=== PATIENT | female | born 1940 | race Caucasian/White ===

== ENCOUNTER 2017-05-19 06:43 | Inpatient (IN) | payer MEDICARE, MEDICAID ==
[~2017-05-19] VITALS: Ht 165.1 cm; Wt 98.9 kg
[2017-05-19] MEDS ORDERED: SODIUM CHLORIDE 0.9% 1,000 ML IV ONE (07:19)
[2017-05-19] MEDS ORDERED: NITROGLYCERIN OINT 1GM/INCH UDPKT TD ONE (07:30)
[2017-05-19] MEDS ORDERED: ASPIRIN 81MG TABLET PO ONE (07:30)
[2017-05-19] MEDS ORDERED: LORAZEPAM 2MG/ML CPJ IV ONE (07:30)
[2017-05-19 07:51] LABS: BASOPHILS % 0.7 % (0.0-2.0); HEMATOCRIT. 35.1 % (36.0-48.0); HEMOGLOBIN. 12.1 g/dL (12.0-16.0); LYMPHOCYTES % 32.9 % (20.0-50.0); MEAN CORPUSCULAR HEMOGLOBIN 32.4 pg (28.0-32.0); MEAN CORPUSCULAR VOLUME 94.2 fL (81.0-99.0); MEAN PLATELET VOLUME 7.4 fl (7.4-10.4); MONOCYTES % 7.5 % (2.0-8.0); NEUTROPHILS % 51.9 % (40.0-76.0); PLATELET 178 x1000/uL (130-400); RED BLOOD CELL COUNT 3.73 mill/uL (4.2-5.4); RED CELL DISTRIBUTION WIDTH 14.5 % (11.6-14.6)
[2017-05-19 08:06] LABS: CARBON DIOXIDE 30 mEq/L (21-32); CHLORIDE 100 mEq/L (98-107); INR 1.1; PARTIAL THROMBOPLASTIN TIME 29.5 sec (23.4-31.0); PROTHROMBIN TIME 11.1 sec (9.4-11.6)
[2017-05-19 08:08] LABS: TROPONIN I < 0.02 ng/mL (0.00-0.04)
[2017-05-19] MEDS ORDERED: DOCUSATE SODIUM 100MG CAPSULE PO PRN (11:15)
[2017-05-19] MEDS ORDERED: IPRATROPIUM/ALBUTEROL 0.5-3(2.5)MG/3ML NEB INH PRN (11:15)
[2017-05-19] MEDS ORDERED: LORAZEPAM 2MG/ML CPJ IV PRN (11:15)
[2017-05-19] MEDS ORDERED: ONDANSETRON HCL 4MG/2ML VIAL IV PRN (11:15)
[2017-05-19] MEDS ORDERED: CLONIDINE 0.1MG TABLET PO PRN (11:15)
[2017-05-19] MEDS ORDERED: HALOPERIDOL LACTATE 5MG/ML VIAL IM PRN (11:15)
[2017-05-19] MEDS ORDERED: GUAIFENESIN 200MG/10ML SUGAR FREE UDC PO PRN (11:15)
[2017-05-19] MEDS ORDERED: NA PHOS,M-B/NA PHOS,DI-BA ENEMA 118ML PR PRN (11:15)
[2017-05-19] MEDS ORDERED: DIPHENHYDRAMINE 50MG/ML VIAL IV PRN (11:15)
[2017-05-19] MEDS ORDERED: MAGNESIUM/ALUMINUM HYDROXIDE/SIMETHICONE 30ML UDC PO PRN (11:15)
[2017-05-19] MEDS ORDERED: NITROGLYCERIN 0.4MG TABLET SL SL PRN (11:15)
[2017-05-19] MEDS ORDERED: ACETAMINOPHEN 325MG TABLET PO PRN (11:15)
[2017-05-19] MEDS ORDERED: TRAMADOL 50MG TABLET PO PRN (11:15)
[2017-05-19 11:30] VITALS: BP 124/51
[2017-05-19] MEDS ORDERED: MORPHINE SULFATE 4 MG/ML CPJ (NOT FOR IM USE) IV PRN (12:15)
[2017-05-19] MEDS: FAMOTIDINE 20MG/2ML VIAL IV SCH ×2 (12:40→15:21)
[2017-05-19] MEDS: ENOXAPARIN 40MG/0.4ML SYR SUBCUT SCH ×2 (12:40→15:22)
[2017-05-19] MEDS ORDERED: AMAN100T PO (14:07)
[2017-05-19] MEDS ORDERED: DIVAL250 PO (14:07)
[2017-05-19] MEDS ORDERED: OLAN10TA19 PO (14:07)
[2017-05-19] MEDS ORDERED: HALO100A IM (14:07)
[2017-05-19 15:32] LABS: CREATINE KINASE 274 IU/L (26-192); CREATINE KINASE MB FRACTION 3.7 ng/mL (0.5-3.6); TROPONIN I < 0.02 ng/mL (0.00-0.04)
[2017-05-19 15:52] VITALS: BP 108/52
[2017-05-19] MEDS: DIVALPROEX SODIUM 250MG DR TABLET PO SCH (19:07)
[2017-05-19] MEDS: OLANZAPINE 10MG TABLET PO SCH (19:07)
[2017-05-19 20:00] VITALS: BP 119/51
[2017-05-19 20:05] LABS: CLARITY URINE CLEAR (CLEAR); COLOR URINE YELLOW (YELLOW); GLUCOSE URINE NEGATIVE (NEGATIVE); KETONES URINE NEGATIVE (NEGATIVE); LEUKOCYTE ESTERASE URINE 1+ (NEGATIVE); NITRITE URINE NEGATIVE (NEGATIVE); OCCULT BLOOD URINE NEGATIVE (NEGATIVE); PROTEIN URINE NEGATIVE (NEGATIVE); SPECIFIC GRAVITY URINE 1.008 (1.005-1.030); UROBILINOGEN URINE 0.2 E.U./dL (0.2-1.0)
[2017-05-19 20:15] LABS: *AMPHETAMINES SCREEN URINE NEGATIVE (NEGATIVE); *BARBITURATES SCREEN URINE NEGATIVE (NEGATIVE); *BENZODIAZEPINES SCREEN URINE NEGATIVE (NEGATIVE); *COCAINE SCREEN URINE NEGATIVE (NEGATIVE); CANNABINOID URINE SCREEN NEGATIVE (NEGATIVE); METHADONE URINE SCREEN NEGATIVE (NEGATIVE); OPIATES URINE SCREEN NEGATIVE (NEGATIVE); PHENCYCLIDINE URINE SCREEN NEGATIVE (NEGATIVE)
[2017-05-19] MEDS ORDERED: ZOLPIDEM TARTRATE 5MG TABLET PO PRN (21:00)
[2017-05-20] VITALS: BP 122/80
[2017-05-20 00:25] LABS: CREATINE KINASE 217 IU/L (26-192)
[2017-05-20 04:00] VITALS: BP 151/45
[2017-05-20 08:00] VITALS: BP 145/53
[2017-05-20] MEDS: ASPIRIN 325MG EC TABLET PO SCH (09:00)
[2017-05-20] MEDS: FAMOTIDINE 20MG/2ML VIAL IV SCH (09:00)
[2017-05-20] MEDS: DIVALPROEX SODIUM 250MG DR TABLET PO SCH ×4 (09:18→17:01)
[2017-05-20] MEDS: OLANZAPINE 10MG TABLET PO SCH ×2 (09:18→17:01)
[2017-05-20 12:00] VITALS: BP 112/52
[2017-05-20] MEDS: ENOXAPARIN 40MG/0.4ML SYR SUBCUT SCH ×2 (12:00→21:00)
[2017-05-20] MEDS ORDERED: POTASSIUM CHLORIDE 20MEQ TABLET SR PO SCH (13:30)
[2017-05-20 14:30] LABS: T4 FREE 0.13 ng/dL (0.76-1.46)
[2017-05-20 16:00] VITALS: BP 134/57
[2017-05-20 20:00] VITALS: BP 136/66
[2017-05-21 00:31] VITALS: BP 92/50
[2017-05-21 04:00] VITALS: BP 99/57
[2017-05-21 05:46] LABS: BASOPHILS % 0.6 % (0.0-2.0); EOSINOPHILS % 5.9 % (0.0-5.0); HEMATOCRIT. 37.5 % (36.0-48.0); HEMOGLOBIN. 12.7 g/dL (12.0-16.0); LYMPHOCYTES % 35.5 % (20.0-50.0); MEAN CORPUSCULAR HEMOGLOBIN 32.2 pg (28.0-32.0); MEAN CORPUSCULAR VOLUME 94.8 fL (81.0-99.0); MEAN PLATELET VOLUME 8.1 fl (7.4-10.4); MONOCYTES % 9.2 % (2.0-8.0); NEUTROPHILS % 48.8 % (40.0-76.0); PLATELET 207 x1000/uL (130-400); RED BLOOD CELL COUNT 3.95 mill/uL (4.2-5.4); RED CELL DISTRIBUTION WIDTH 14.8 % (11.6-14.6)
[2017-05-21 06:41] LABS: CARBON DIOXIDE 29 mEq/L (21-32); CHLORIDE 103 mEq/L (98-107)
[2017-05-21 06:51] LABS: TROPONIN I < 0.02 ng/mL (0.00-0.04)
[2017-05-21 08:00] VITALS: BP 141/53
[2017-05-21] MEDS: ASPIRIN 325MG EC TABLET PO SCH (08:30)
[2017-05-21] MEDS: FAMOTIDINE 20MG/2ML VIAL IV SCH (08:30)
[2017-05-21] MEDS: DIVALPROEX SODIUM 250MG DR TABLET PO SCH ×3 (08:30→17:46)
[2017-05-21] MEDS: ENOXAPARIN 40MG/0.4ML SYR SUBCUT SCH (08:34)
[2017-05-21] MEDS: OLANZAPINE 10MG TABLET PO SCH ×2 (08:39→17:46)
[2017-05-21 12:00] VITALS: BP 120/49
[2017-05-21] MEDS: LEVOTHYROXINE SODIUM 50MCG TABLET PO SCH (14:07)
[2017-05-21 16:00] VITALS: BP 132/54
[2017-05-21 20:00] VITALS: BP 109/51
[2017-05-21] MEDS: ENOXAPARIN 30MG/0.3ML SYR SUBCUT SCH (20:57)
[2017-05-22] VITALS: BP 99/45
[2017-05-22 04:00] VITALS: BP 95/46
[2017-05-22] MEDS: LEVOTHYROXINE SODIUM 50MCG TABLET PO SCH (06:13)
[2017-05-22 08:00] VITALS: BP 108/56
[2017-05-22] MEDS: DIVALPROEX SODIUM 250MG DR TABLET PO SCH ×3 (08:29→16:14)
[2017-05-22] MEDS: OLANZAPINE 10MG TABLET PO SCH ×2 (08:29→16:14)
[2017-05-22] MEDS: ASPIRIN 325MG EC TABLET PO SCH (08:29)
[2017-05-22] MEDS: ENOXAPARIN 30MG/0.3ML SYR SUBCUT SCH ×2 (08:33→20:45)
[2017-05-22] MEDS: FAMOTIDINE 20MG/2ML VIAL IV SCH (08:34)
[2017-05-22 12:00] VITALS: BP 109/47
[2017-05-22 15:44] VITALS: BP 114/56
[2017-05-22 20:00] VITALS: BP 109/60
[2017-05-23] VITALS: BP 108/50
[2017-05-23 04:00] VITALS: BP 114/50
[2017-05-23] MEDS: LEVOTHYROXINE SODIUM 50MCG TABLET PO SCH (07:27)
[2017-05-23] MEDS: DIVALPROEX SODIUM 250MG DR TABLET PO SCH ×4 (09:00→17:00)
[2017-05-23] MEDS: OLANZAPINE 10MG TABLET PO SCH ×3 (09:00→17:00)
[2017-05-23] MEDS: ENOXAPARIN 30MG/0.3ML SYR SUBCUT SCH ×2 (09:00→21:00)
[2017-05-23] MEDS: ASPIRIN 325MG EC TABLET PO SCH ×2 (09:00→09:02)
[2017-05-23] MEDS: FAMOTIDINE 20MG/2ML VIAL IV SCH (09:00)
[2017-05-23 12:00] VITALS: BP 116/41
[2017-05-23 15:08] VITALS: BP 116/41
[2017-05-23 20:00] VITALS: BP 122/51
[2017-05-24] VITALS: BP 133/56
[2017-05-24 04:00] VITALS: BP 128/50
[2017-05-24] MEDS: LEVOTHYROXINE SODIUM 50MCG TABLET PO SCH (06:37)
[2017-05-24 08:00] VITALS: BP 105/48
[2017-05-24] MEDS: ASPIRIN 325MG EC TABLET PO SCH (08:21)
[2017-05-24] MEDS: FAMOTIDINE 20MG/2ML VIAL IV SCH (08:21)
[2017-05-24] MEDS: OLANZAPINE 10MG TABLET PO SCH (08:21)
[2017-05-24] MEDS: DIVALPROEX SODIUM 250MG DR TABLET PO SCH ×2 (08:21→12:21)
[2017-05-24] MEDS: ENOXAPARIN 30MG/0.3ML SYR SUBCUT SCH (08:22)
[2017-05-24 12:00] VITALS: BP 126/96
[2017-05-24 13:36] VITALS: BP 126/96
== END 2017-05-24 15:15 | DRG 313 ==
LOC: ER 06:43 → ENRESERV 09:49 → 6WST 10:32 → EDBEDREQ 10:35 → SUPCPDRO 11:01 → 6WST 13:25
PROVIDERS: ADMIT Internal Medicine; ATTEND Internal Medicine
DX: R07.89 Other chest pain (principal); J44.9 Chronic obstructive pulmonary disease, unspecified; F20.9 Schizophrenia, unspecified; I44.1 Atrioventricular block, second degree; E03.9 Hypothyroidism, unspecified; E78.00 Pure hypercholesterolemia, unspecified; F17.210 Nicotine dependence, cigarettes, uncomplicated; F31.9 Bipolar disorder, unspecified; Z79.82 Long term (current) use of aspirin; Z91.19 Patient's noncompliance with other medical treatment and regimen; Z88.8 Allergy status to other drugs, medicaments and biological substances
CPT/HCPCS: 36415; 71010; 80053; 80061; 80305; 81001; 82550; 82553; 83036; 83735; 83880; 84439; 84443; 84481; 84484; 85025; 85379; 85610; 85730; 93005; 93306; 93970; 96361; 96374; 97162; 99285; J1200; J1630; J1650; J2060; J3490; J7030

== ENCOUNTER 2018-10-12 18:45 | Inpatient (IN) | payer MEDICARE, MEDICAID ==
[~2018-10-12] VITALS: Ht 167.6 cm; Wt 109.8 kg
[~2018-10-12 18:45] MED LIST: AMAN100T PO; DIVAL250 PO; HALO100A IM; OLAN10TA19 PO
[2018-10-12] MEDS ORDERED: METHYLPREDNISOLONE SOD SUCC 125 MG/2 ML VIAL IV STA (19:14)
[2018-10-12] MEDS ORDERED: LEVOFLOXACIN 750MG PREMIX 150 ML IV ONE (19:15)
[2018-10-12] MEDS ORDERED: IPRATROPIUM/ALBUTEROL 0.5-3(2.5)MG/3ML NEB HHN ONE (19:15)
[2018-10-12 19:48] LABS: BG BASE EXCESS -0.8 mmol/L (-2.0-2.0); BG CARBOXYHEMOGLOBIN 0.5 % (0.5-1.5); BG DEOXYHEMOGLOBIN 0.9 % (0.0-5.0); BG FRACTION INSPIRED OXYGEN 100; BG HCO3 ACT 25.3 mmol/L (22.0-26.0); BG METHEMOGLOBIN 0.2 % (0.0-1.5); BG OXYGEN SATURATION 99.1 % (92.0-98.5); BG OXYHEMOGLOBIN 98.4 % (94.0-97.0); BG PCO2 47.9 mmHg (35.0-45.0); BG PH 7.341 (7.350-7.450); BG PO2 223.6 mmHg (75.0-100.0); BG SAMPLE SITE RIGHT RADIAL; BG TOTAL HEMOGLOBIN 11.9 g/dL (12.0-18.0); BG VENT MODE MASK - NRB
[2018-10-12 20:30] LABS: BASOPHILS % 0.3 % (0.0-2.0); EOSINOPHILS % 0.3 % (0.0-5.0); HEMATOCRIT. 32.3 % (36.0-48.0); HEMOGLOBIN. 11.2 g/dL (12.0-16.0); LYMPHOCYTES % 19.8 % (20.0-50.0); MEAN PLATELET VOLUME 8.3 fl (7.4-10.4); MONOCYTES % 5.3 % (2.0-8.0); NEUTROPHILS % 74.3 % (40.0-76.0); PLATELET 221 x1000/uL (130-400); RED CELL DISTRIBUTION WIDTH 13.3 % (11.6-14.6)
[2018-10-12 20:32] LABS: CHLORIDE 81 mEq/L (98-107)
[2018-10-12 20:36] LABS: INR 1.1; PARTIAL THROMBOPLASTIN TIME 29.3 sec (23.4-31.0); PROTHROMBIN TIME 11.1 sec (9.1-11.1)
[2018-10-12] MEDS ORDERED: ASPIRIN 81MG TABLET PO ONE (21:30)
[2018-10-12] MEDS ORDERED: FUROSEMIDE 40MG/4ML VIAL IVP ONE (21:30)
[2018-10-12] MEDS ORDERED: HYDROCODONE/ACETAMINOPHEN 10/325MG TABLET PO PRN (22:30)
[2018-10-12] MEDS ORDERED: LORAZEPAM 2MG/ML CPJ IV ONE (22:30)
[2018-10-12] MEDS ORDERED: GUAIFENESIN 200MG/10ML SUGAR FREE UDC PO PRN (22:30)
[2018-10-12] MEDS ORDERED: LORAZEPAM 2MG/ML CPJ IV PRN (22:30)
[2018-10-12] MEDS ORDERED: DOCUSATE SODIUM 100MG CAPSULE PO PRN (22:30)
[2018-10-12] MEDS ORDERED: HYDRALAZINE 20MG/ML VIAL IV PRN (22:30)
[2018-10-12] MEDS ORDERED: MAGNESIUM/ALUMINUM HYDROXIDE/SIMETHICONE 30ML UDC PO PRN (22:30)
[2018-10-12] MEDS ORDERED: ACETAMINOPHEN 325MG TABLET PO PRN (22:30)
[2018-10-12] MEDS ORDERED: DIPHENHYDRAMINE 50MG/ML VIAL IV PRN (22:30)
[2018-10-12] MEDS ORDERED: ONDANSETRON HCL 4MG/2ML INJ IV PRN (22:30)
[2018-10-12] MEDS ORDERED: CLONIDINE 0.1MG TABLET PO PRN (22:30)
[2018-10-13 01:10] VITALS: BP 163/84
[2018-10-13 01:43] VITALS: BP 163/84
[2018-10-13] MEDS ORDERED: LEVO150T8 PO (02:26)
[2018-10-13] MEDS ORDERED: ASPI-1158 PO (02:26)
[2018-10-13] MEDS ORDERED: ATOR10TA69 PO (02:26)
[2018-10-13] MEDS ORDERED: ACET-2178 PO ×2 (02:26)
[2018-10-13] MEDS ORDERED: IPRA3AMP9 HHN (02:26)
[2018-10-13] MEDS ORDERED: HYDROMORPHONE HCL/PF 2MG/ML CPJ IV PRN (02:43)
[2018-10-13 04:00] VITALS: BP 144/62
[2018-10-13] MEDS: IPRATROPIUM/ALBUTEROL 0.5-3(2.5)MG/3ML NEB INH PRN ×2 (04:09→08:48)
[2018-10-13] MEDS: SODIUM CHLORIDE 0.9% INJ 3ML FLUSH IVF SCH ×3 (05:26→21:20)
[2018-10-13] MEDS: METHYLPREDNISOLONE SOD SUCC 125 MG/2 ML VIAL IV SCH ×2 (06:28→12:25)
[2018-10-13 07:37] LABS: CLARITY URINE CLEAR (CLEAR); COLOR URINE YELLOW (YELLOW); KETONES URINE NEGATIVE (NEGATIVE); LEUKOCYTE ESTERASE URINE NEGATIVE (NEGATIVE); NITRITE URINE NEGATIVE (NEGATIVE); OCCULT BLOOD URINE 1+ (NEGATIVE); PROTEIN URINE NEGATIVE (NEGATIVE); SPECIFIC GRAVITY URINE 1.006 (1.005-1.030); UROBILINOGEN URINE 0.2 E.U./dL (0.2-1.0)
[2018-10-13] MEDS ORDERED: ENOXAPARIN 30MG/0.3ML SYR SUBCUT SCH (09:00)
[2018-10-13] MEDS: ASPIRIN 81MG EC TABLET PO SCH ×2 (09:00→10:00)
[2018-10-13] MEDS ORDERED: ENOXAPARIN 40MG/0.4ML SYR SUBCUT SCH (09:00)
[2018-10-13] MEDS: ASPIRIN 81MG TABLET PO SCH (09:00)
[2018-10-13] MEDS: FUROSEMIDE 40MG/4ML VIAL IV SCH (10:01)
[2018-10-13] MEDS: ENOXAPARIN 100MG/ML SYR SUBCUT SCH ×2 (10:11→21:19)
[2018-10-13] MEDS: IPRATROPIUM/ALBUTEROL 0.5-3(2.5)MG/3ML NEB HHN SCH ×2 (11:43→17:03)
[2018-10-13 12:25] VITALS: BP 115/61
[2018-10-13 12:52] LABS: BASOPHILS % 0.1 % (0.0-2.0); HEMATOCRIT. 33.6 % (36.0-48.0); HEMOGLOBIN. 11.9 g/dL (12.0-16.0); LYMPHOCYTES % 10.4 % (20.0-50.0); MEAN CORPUSCULAR HEMOGLOBIN 33.1 pg (28.0-32.0); MEAN CORPUSCULAR VOLUME 93.8 fL (81.0-99.0); MEAN PLATELET VOLUME 8.3 fl (7.4-10.4); MONOCYTES % 2.4 % (2.0-8.0); NEUTROPHILS % 87.1 % (40.0-76.0); PLATELET 205 x1000/uL (130-400); RED BLOOD CELL COUNT 3.58 mill/uL (4.2-5.4); RED CELL DISTRIBUTION WIDTH 13.5 % (11.6-14.6)
[2018-10-13 13:08] LABS: CHLORIDE 78 mEq/L (98-107)
[2018-10-13 13:15] LABS: HDL CHOLESTEROL 82 mg/dL (40-59)
[2018-10-13 13:17] LABS: CREATINE KINASE MB FRACTION 38.4 ng/mL (0.5-3.6); LDL CHOLESTEROL 168 mg/dL (5-100)
[2018-10-13 13:29] LABS: CREATINE KINASE 2961 IU/L (26-192)
[2018-10-13 13:45] LABS: T4 FREE 0.14 ng/dL (0.76-1.46)
[2018-10-13 16:11] VITALS: BP_SYST 123; BP_SYST 128; BP_DIAS 33; BP_DIAS 50
[2018-10-13] MEDS: POTASSIUM CHLORIDE 20MEQ TABLET SR PO NR ×2 (16:44→17:00)
[2018-10-13] MEDS: BUDESONIDE 0.5MG/2ML NEB HHN SCH (17:02)
[2018-10-13 20:00] VITALS: BP 143/51
[2018-10-13] MEDS: GUAIFENESIN 600MG ER TABLET PO SCH (21:00)
[2018-10-13 22:19] LABS: CREATINE KINASE MB FRACTION 42.5 ng/mL (0.5-3.6)
[2018-10-14] VITALS: BP 120/66
[2018-10-14] MEDS: IPRATROPIUM/ALBUTEROL 0.5-3(2.5)MG/3ML NEB HHN SCH ×7 (00:08→21:09)
[2018-10-14] MEDS: BUDESONIDE 0.5MG/2ML NEB HHN SCH ×4 (03:48→21:09)
[2018-10-14 04:00] VITALS: BP 134/54
[2018-10-14 06:19] LABS: EOSINOPHILS % 0.1 % (0.0-5.0); HEMATOCRIT. 32.5 % (36.0-48.0); HEMOGLOBIN. 11.5 g/dL (12.0-16.0); LYMPHOCYTES % 15.2 % (20.0-50.0); MEAN CORPUSCULAR HEMOGLOBIN 33.7 pg (28.0-32.0); MEAN CORPUSCULAR VOLUME 95.1 fL (81.0-99.0); MEAN PLATELET VOLUME 8.3 fl (7.4-10.4); MONOCYTES % 6.4 % (2.0-8.0); NEUTROPHILS % 78.3 % (40.0-76.0); PLATELET 201 x1000/uL (130-400); RED BLOOD CELL COUNT 3.42 mill/uL (4.2-5.4); RED CELL DISTRIBUTION WIDTH 13.2 % (11.6-14.6)
[2018-10-14] MEDS: SODIUM CHLORIDE 0.9% INJ 3ML FLUSH IVF SCH ×3 (06:28→20:38)
[2018-10-14] MEDS: FUROSEMIDE 40MG/4ML VIAL IV SCH (08:25)
[2018-10-14] MEDS: ENOXAPARIN 100MG/ML SYR SUBCUT SCH ×3 (08:26→20:44)
[2018-10-14] MEDS: GUAIFENESIN 600MG ER TABLET PO SCH ×2 (08:26→20:39)
[2018-10-14] MEDS: ASPIRIN 81MG TABLET PO SCH (08:26)
[2018-10-14 12:06] VITALS: BP 123/51
[2018-10-14] MEDS: OSELTAMIVIR 75MG CAPSULE PO SCH ×2 (13:45→20:39)
[2018-10-14] MEDS: AZITHROMYCIN 500 MG TABLET PO SCH (16:12)
[2018-10-14] MEDS: CEFTRIAXONE 1 G PREMIX 50 ML IV SCH (16:12)
[2018-10-14 16:16] VITALS: BP 134/42
[2018-10-14 18:05] LABS: *AMPHETAMINES SCREEN URINE NEGATIVE (NEGATIVE)
[2018-10-14 18:06] LABS: *BARBITURATES SCREEN URINE NEGATIVE (NEGATIVE); *BENZODIAZEPINES SCREEN URINE NEGATIVE (NEGATIVE); *COCAINE SCREEN URINE NEGATIVE (NEGATIVE); CANNABINOID URINE SCREEN NEGATIVE (NEGATIVE); METHADONE URINE SCREEN NEGATIVE (NEGATIVE); OPIATES URINE SCREEN NEGATIVE (NEGATIVE); PHENCYCLIDINE URINE SCREEN NEGATIVE (NEGATIVE)
[2018-10-14 20:00] VITALS: BP 120/70
[2018-10-15] VITALS: BP 139/54
[2018-10-15] MEDS: IPRATROPIUM/ALBUTEROL 0.5-3(2.5)MG/3ML NEB HHN SCH ×4 (00:39→12:51)
[2018-10-15 04:00] VITALS: BP 136/58
[2018-10-15] MEDS: SODIUM CHLORIDE 0.9% INJ 3ML FLUSH IVF SCH (07:00)
[2018-10-15 08:00] VITALS: BP 140/60
[2018-10-15] MEDS: BUDESONIDE 0.5MG/2ML NEB HHN SCH (08:01)
[2018-10-15] MEDS: ASPIRIN 81MG TABLET PO SCH (09:00)
[2018-10-15] MEDS: OSELTAMIVIR 75MG CAPSULE PO SCH (09:00)
[2018-10-15] MEDS: ENOXAPARIN 100MG/ML SYR SUBCUT SCH (09:00)
[2018-10-15] MEDS: AZITHROMYCIN 500 MG TABLET PO SCH ×2 (09:36→09:42)
[2018-10-15] MEDS: FUROSEMIDE 40MG/4ML VIAL IV SCH (09:36)
[2018-10-15] MEDS: GUAIFENESIN 600MG ER TABLET PO SCH ×2 (09:36→09:42)
[2018-10-15 12:00] VITALS: BP 113/65
[2018-10-15] MEDS: CEFTRIAXONE 1 G PREMIX 50 ML IV SCH (13:14)
[2018-10-15 13:47] VITALS: BP 113/65
[2018-10-15] MEDS ORDERED: POTASSIUM CHLORIDE 20MEQ TABLET SR PO NR (15:15)
[2018-10-15] MEDS ORDERED: ATORVASTATIN CALCIUM 20MG TABLET PO SCH (21:00)
== END 2018-10-15 15:05 | disposition home or self-care (01) | DRG 291 ==
LOC: ER 18:45 → 5WST 21:41 → EDBEDREQTM 21:45 → EDBEDREQ 21:45 → ENRESERV 10-13 00:19
PROVIDERS: ADMIT Internal Medicine; ATTEND Internal Medicine
DX: I50.33 Acute on chronic diastolic (congestive) heart failure (principal); J96.00 Acute respiratory failure, unspecified whether with hypoxia or hypercapnia; E87.1 Hypo-osmolality and hyponatremia; J44.1 Chronic obstructive pulmonary disease with (acute) exacerbation; M62.82 Rhabdomyolysis; F03.90 Unspecified dementia, unspecified severity, without behavioral disturbance, psychotic disturbance, mood disturbance, and anxiety; G20 Parkinson's disease; R74.0 Nonspecific elevation of levels of transaminase and lactic acid dehydrogenase [LDH]; E03.9 Hypothyroidism, unspecified; E78.5 Hyperlipidemia, unspecified; E87.6 Hypokalemia; Z79.82 Long term (current) use of aspirin; Z79.890 Hormone replacement therapy; Z88.8 Allergy status to other drugs, medicaments and biological substances; Z79.899 Other long term (current) drug therapy
CPT/HCPCS: 36415; 36600; 71045; 80048; 80061; 80165; 80305; 82375; 82550; 82553; 82805; 82962; 83036; 83605; 83735; 83880; 84439; 84443; 84484; 85379; 87804; 93005; 93306; 93970; 96374; 99291; J0696; J1650; J1940; J1956; J2060; J2930; J7050; J7620; J7626

== ENCOUNTER 2018-10-27 16:09 | Inpatient (IN) | payer MEDICARE, MEDICAID ==
[~2018-10-27] VITALS: Ht 152.4 cm; Wt 108.9 kg
[~2018-10-27 16:09] MED LIST changes: +ACET-2178 PO; +ASPI-1158 PO; +ATOR10TA69 PO; -HALO100A IM; +IPRA3AMP9 HHN; +LEVO150T8 PO
[2018-10-27] MEDS ORDERED: METHYLPREDNISOLONE SOD SUCC 125 MG/2 ML VIAL IV STA (17:44)
[2018-10-27] MEDS ORDERED: IPRATROPIUM/ALBUTEROL 0.5-3(2.5)MG/3ML NEB HHN ONE (17:45)
[2018-10-27 18:58] LABS: BASOPHILS % 0.1 % (0.0-2.0); EOSINOPHILS % 0.1 % (0.0-5.0); HEMATOCRIT. 30.5 % (36.0-48.0); HEMOGLOBIN. 10.8 g/dL (12.0-16.0); LYMPHOCYTES % 17.8 % (20.0-50.0); MEAN CORPUSCULAR HEMOGLOBIN 33.2 pg (28.0-32.0); MEAN CORPUSCULAR VOLUME 94.1 fL (81.0-99.0); MEAN PLATELET VOLUME 7.8 fl (7.4-10.4); MONOCYTES % 4.4 % (2.0-8.0); NEUTROPHILS % 77.6 % (40.0-76.0); PLATELET 227 x1000/uL (130-400); RED BLOOD CELL COUNT 3.24 mill/uL (4.2-5.4); RED CELL DISTRIBUTION WIDTH 13.5 % (11.6-14.6)
[2018-10-27 19:01] LABS: CHLORIDE 83 mEq/L (98-107)
[2018-10-27 19:07] LABS: D-DIMER 0.36 mg/L FEU (<0.50); INR 1.1; PARTIAL THROMBOPLASTIN TIME 31.7 sec (23.4-31.0); PROTHROMBIN TIME 11.1 sec (9.1-11.1)
[2018-10-27] MEDS ORDERED: NITROGLYCERIN OINT 1GM/INCH UDPKT TD ONE (19:30)
[2018-10-27] MEDS ORDERED: FUROSEMIDE 40MG/4ML VIAL IV ONE (19:30)
[2018-10-27] MEDS ORDERED: ASPIRIN 81MG TABLET PO ONE (19:30)
[2018-10-27] MEDS ORDERED: ONDANSETRON HCL 4MG/2ML INJ IV PRN (19:45)
[2018-10-27] MEDS ORDERED: MAGNESIUM/ALUMINUM HYDROXIDE/SIMETHICONE 30ML UDC PO PRN (19:45)
[2018-10-27] MEDS ORDERED: CLONIDINE 0.1MG TABLET PO PRN (19:45)
[2018-10-27] MEDS ORDERED: LORAZEPAM 0.5MG TABLET PO PRN (19:45)
[2018-10-27] MEDS ORDERED: ACETAMINOPHEN 325MG TABLET PO PRN (19:45)
[2018-10-27] MEDS ORDERED: GUAIFENESIN 200MG/10ML SUGAR FREE UDC PO PRN (19:45)
[2018-10-27] MEDS ORDERED: ZOLPIDEM TARTRATE 5MG TABLET PO PRN (19:45)
[2018-10-27] MEDS ORDERED: TRAMADOL 50MG TABLET PO PRN (19:45)
[2018-10-27] MEDS ORDERED: DOCUSATE SODIUM 100MG CAPSULE PO PRN (19:45)
[2018-10-27] MEDS ORDERED: IPRATROPIUM/ALBUTEROL 0.5-3(2.5)MG/3ML NEB INH PRN (19:45)
[2018-10-27] MEDS ORDERED: NITROGLYCERIN 0.4MG TABLET SL SL PRN (19:45)
[2018-10-27 20:17] LABS: T4 FREE 0.12 ng/dL (0.76-1.46)
[2018-10-27 20:26] LABS: *AMPHETAMINES SCREEN URINE NEGATIVE (NEGATIVE); *BARBITURATES SCREEN URINE NEGATIVE (NEGATIVE); *BENZODIAZEPINES SCREEN URINE NEGATIVE (NEGATIVE); *COCAINE SCREEN URINE NEGATIVE (NEGATIVE); METHADONE URINE SCREEN NEGATIVE (NEGATIVE); OPIATES URINE SCREEN NEGATIVE (NEGATIVE)
[2018-10-27 20:27] LABS: CANNABINOID URINE SCREEN NEGATIVE (NEGATIVE); PHENCYCLIDINE URINE SCREEN NEGATIVE (NEGATIVE)
[2018-10-27 20:27] LABS: FOLIC ACID (FOLATE) SERUM 15.4 ng/mL (>5.38)
[2018-10-27] MEDS ORDERED: LORAZEPAM 2MG/ML CPJ IM STA (21:11)
[2018-10-27] MEDS ORDERED: FUROSEMIDE 40MG/4ML VIAL IVP SCH (23:00)
[2018-10-27] MEDS ORDERED: DIVALPROEX SODIUM 250MG DR TABLET PO SCH (23:00)
[2018-10-27] MEDS ORDERED: GUAIFENESIN/DM 600MG/30MG ER TAB 12HR PO SCH (23:00)
[2018-10-27] MEDS ORDERED: FLUMAZENIL 0.1 MG/ML 5ML VIAL IV ONE (23:23)
[2018-10-27 23:26] LABS: BG BASE EXCESS 2.4 mmol/L (-2.0-2.0); BG CARBOXYHEMOGLOBIN 0.1 % (0.5-1.5); BG DEOXYHEMOGLOBIN 0.6 % (0.0-5.0); BG FRACTION INSPIRED OXYGEN 100; BG HCO3 ACT 28.8 mmol/L (22.0-26.0); BG METHEMOGLOBIN 0.3 % (0.0-1.5); BG OXYGEN SATURATION 99.4 % (92.0-98.5); BG PCO2 53.2 mmHg (35.0-45.0); BG PH 7.352 (7.350-7.450); BG PO2 353.7 mmHg (75.0-100.0); BG SAMPLE SITE RIGHT RADIAL; BG TOTAL HEMOGLOBIN 11.4 g/dL (12.0-18.0); BG VENT MODE MASK - NRB
[2018-10-27] MEDS ORDERED: FLUMAZENIL 0.1 MG/ML 5ML VIAL IV SCH ×2 (23:30→23:51)
[2018-10-27 23:58] VITALS: BP 135/56
[2018-10-28] VITALS (17 sets, daily range): BP systolic 109–191; BP diastolic 55–95
[2018-10-28] MEDS ORDERED: LEVOFLOXACIN 500MG PREMIX 100 ML IV SCH
[2018-10-28 00:35] LABS: CREATINE KINASE MB FRACTION 46.3 ng/mL (0.5-3.6)
[2018-10-28 00:46] LABS: CREATINE KINASE 1910 IU/L (26-192)
[2018-10-28 01:06] LABS: BG BASE EXCESS 2.1 mmol/L (-2.0-2.0); BG CARBOXYHEMOGLOBIN 0.2 % (0.5-1.5); BG DEOXYHEMOGLOBIN 0.7 % (0.0-5.0); BG FRACTION INSPIRED OXYGEN 100; BG METHEMOGLOBIN 0.4 % (0.0-1.5); BG OXYGEN SATURATION 99.3 % (92.0-98.5); BG OXYHEMOGLOBIN 98.7 % (94.0-97.0); BG PCO2 64.2 mmHg (35.0-45.0); BG PH 7.288 (7.350-7.450); BG SAMPLE SITE RIGHT RADIAL; BG TOTAL HEMOGLOBIN 11.5 g/dL (12.0-18.0); BG VENT MODE MASK - NRB
[2018-10-28] MEDS: METHYLPREDNISOLONE SOD SUCC 125 MG/2 ML VIAL IV SCH ×2 (02:13→08:25)
[2018-10-28] MEDS: ENOXAPARIN 30MG/0.3ML SYR SUBCUT SCH ×3 (02:16→21:24)
[2018-10-28] MEDS: IPRATROPIUM/ALBUTEROL 0.5-3(2.5)MG/3ML NEB HHN SCH ×5 (03:07→21:20)
[2018-10-28] MEDS: FAMOTIDINE 20MG TABLET PO SCH ×3 (04:18→21:22)
[2018-10-28] MEDS: SPIRONOLACTONE 25MG TABLET PO SCH ×3 (04:19→21:24)
[2018-10-28] MEDS: VALPROATE SODIUM 250MG/5ML UDC PO SCH ×3 (06:29→21:22)
[2018-10-28] MEDS: LEVOTHYROXINE SODIUM 150MCG TABLET PO SCH (06:30)
[2018-10-28 07:13] LABS: CREATINE KINASE MB FRACTION 37.9 ng/mL (0.5-3.6)
[2018-10-28 07:29] LABS: CREATINE KINASE 1641 IU/L (26-192)
[2018-10-28] MEDS: FUROSEMIDE 40MG/4ML VIAL IVP SCH ×2 (08:25→16:47)
[2018-10-28] MEDS ORDERED: ASPIRIN 325MG EC TABLET PO SCH (09:00)
[2018-10-28 09:58] LABS: BG BASE EXCESS 4.7 mmol/L (-2.0-2.0); BG CARBOXYHEMOGLOBIN 0.8 % (0.5-1.5); BG DEOXYHEMOGLOBIN 3.1 % (0.0-5.0); BG FRACTION INSPIRED OXYGEN 34; BG HCO3 ACT 32.4 mmol/L (22.0-26.0); BG METHEMOGLOBIN 0.2 % (0.0-1.5); BG OXYGEN SATURATION 96.9 % (92.0-98.5); BG OXYHEMOGLOBIN 95.9 % (94.0-97.0); BG PCO2 63.5 mmHg (35.0-45.0); BG PH 7.325 (7.350-7.450); BG SAMPLE SITE LEFT RADIAL; BG VENT MODE NASAL CANNULA
[2018-10-28] MEDS ORDERED: GUAIFENESIN 200MG/10ML SUGAR FREE UDC PO PRN (11:15)
[2018-10-28] MEDS: METHYLPREDNISOLONE SOD SUCC 40 MG/ML VIAL IV SCH ×2 (16:47→23:01)
[2018-10-28] MEDS: LEVOFLOXACIN 500MG PREMIX 100 ML IV SCH (23:01)
[2018-10-29] VITALS (12 sets, daily range): BP systolic 96–138; BP diastolic 29–70
[2018-10-29] MEDS: IPRATROPIUM/ALBUTEROL 0.5-3(2.5)MG/3ML NEB HHN SCH ×6 (00:55→20:53)
[2018-10-29] MEDS: VALPROATE SODIUM 250MG/5ML UDC PO SCH ×4 (06:00→21:34)
[2018-10-29] MEDS: LEVOTHYROXINE SODIUM 150MCG TABLET PO SCH (06:14)
[2018-10-29] MEDS: FUROSEMIDE 40MG/4ML VIAL IVP SCH ×2 (06:29→17:43)
[2018-10-29] MEDS: ASPIRIN 325MG TABLET PO SCH (08:51)
[2018-10-29] MEDS: FAMOTIDINE 20MG TABLET PO SCH ×2 (08:51→21:00)
[2018-10-29] MEDS: ENOXAPARIN 30MG/0.3ML SYR SUBCUT SCH ×2 (08:51→21:00)
[2018-10-29] MEDS: METHYLPREDNISOLONE SOD SUCC 40 MG/ML VIAL IV SCH ×2 (08:54→15:35)
[2018-10-29] MEDS: SPIRONOLACTONE 25MG TABLET PO SCH ×2 (08:54→21:00)
[2018-10-29 09:06] LABS: BG BASE EXCESS 4.9 mmol/L (-2.0-2.0); BG CARBOXYHEMOGLOBIN 0.6 % (0.5-1.5); BG DEOXYHEMOGLOBIN 10.7 % (0.0-5.0); BG FRACTION INSPIRED OXYGEN 21; BG HCO3 ACT 29.4 mmol/L (22.0-26.0); BG METHEMOGLOBIN 0.1 % (0.0-1.5); BG OXYGEN SATURATION 89.2 % (92.0-98.5); BG OXYHEMOGLOBIN 88.6 % (94.0-97.0); BG PH 7.453 (7.350-7.450); BG PO2 56.3 mmHg (75.0-100.0); BG SAMPLE SITE RIGHT BRACHIAL; BG TOTAL HEMOGLOBIN 11.7 g/dL (12.0-18.0); BG VENT MODE ROOM AIR
[2018-10-29] MEDS: CARBIDOPA/LEVODOPA 25/100MG TABLET CR PO SCH ×2 (14:29→17:43)
[2018-10-30] VITALS (11 sets, daily range): BP systolic 113–156; BP diastolic 41–85
[2018-10-30] MEDS: LEVOFLOXACIN 500MG PREMIX 100 ML IV SCH (00:57)
[2018-10-30] MEDS: IPRATROPIUM/ALBUTEROL 0.5-3(2.5)MG/3ML NEB HHN SCH ×5 (01:30→20:28)
[2018-10-30 06:01] LABS: BASOPHILS % 0.1 % (0.0-2.0); HEMATOCRIT. 32.7 % (36.0-48.0); HEMOGLOBIN. 11.3 g/dL (12.0-16.0); MEAN CORPUSCULAR HEMOGLOBIN 33.3 pg (28.0-32.0); MEAN CORPUSCULAR VOLUME 96.2 fL (81.0-99.0); MEAN PLATELET VOLUME 7.7 fl (7.4-10.4); MONOCYTES % 5.3 % (2.0-8.0); NEUTROPHILS % 84.6 % (40.0-76.0); PLATELET 236 x1000/uL (130-400); RED CELL DISTRIBUTION WIDTH 13.8 % (11.6-14.6)
[2018-10-30 06:08] LABS: CHLORIDE 82 mEq/L (98-107)
[2018-10-30] MEDS: VALPROATE SODIUM 250MG/5ML UDC PO SCH ×3 (06:43→22:00)
[2018-10-30] MEDS: LEVOTHYROXINE SODIUM 150MCG TABLET PO SCH (06:43)
[2018-10-30] MEDS: METHYLPREDNISOLONE SOD SUCC 40 MG/ML VIAL IV SCH ×3 (08:00→16:00)
[2018-10-30 08:55] LABS: BG BASE EXCESS 9.1 mmol/L (-2.0-2.0); BG CARBOXYHEMOGLOBIN 0.3 % (0.5-1.5); BG DEOXYHEMOGLOBIN 7.3 % (0.0-5.0); BG FRACTION INSPIRED OXYGEN 21; BG HCO3 ACT 34.5 mmol/L (22.0-26.0); BG METHEMOGLOBIN 0.2 % (0.0-1.5); BG OXYGEN SATURATION 92.7 % (92.0-98.5); BG OXYHEMOGLOBIN 92.2 % (94.0-97.0); BG PCO2 50.6 mmHg (35.0-45.0); BG PH 7.451 (7.350-7.450); BG PO2 64.1 mmHg (75.0-100.0); BG SAMPLE SITE RIGHT BRACHIAL; BG TOTAL HEMOGLOBIN 12.1 g/dL (12.0-18.0); BG VENT MODE ROOM AIR
[2018-10-30] MEDS: FUROSEMIDE 40MG/4ML VIAL IVP SCH ×2 (09:19→16:42)
[2018-10-30] MEDS: ENOXAPARIN 30MG/0.3ML SYR SUBCUT SCH ×2 (09:19→21:00)
[2018-10-30] MEDS: CARBIDOPA/LEVODOPA 25/100MG TABLET CR PO SCH ×3 (09:19→16:42)
[2018-10-30] MEDS: FAMOTIDINE 20MG TABLET PO SCH ×2 (09:23→21:00)
[2018-10-30] MEDS: SPIRONOLACTONE 25MG TABLET PO SCH ×2 (09:23→21:00)
[2018-10-30] MEDS: ASPIRIN 325MG TABLET PO SCH (09:24)
[2018-10-30] MEDS: OLANZAPINE 5MG TABLET PO SCH (11:20)
[2018-10-30] MEDS: HALOPERIDOL LACTATE 5MG/ML VIAL IM PRN (11:21)
[2018-10-31] MEDS: LEVOFLOXACIN 500MG PREMIX 100 ML IV SCH (00:12)
[2018-10-31] MEDS: METHYLPREDNISOLONE SOD SUCC 40 MG/ML VIAL IV SCH ×4 (00:14→16:00)
[2018-10-31] MEDS: IPRATROPIUM/ALBUTEROL 0.5-3(2.5)MG/3ML NEB HHN SCH ×4 (00:32→12:39)
[2018-10-31] MEDS: LEVOTHYROXINE SODIUM 150MCG TABLET PO SCH (07:15)
[2018-10-31] MEDS: ASPIRIN 325MG TABLET PO SCH ×2 (08:01→09:00)
[2018-10-31] MEDS: SPIRONOLACTONE 25MG TABLET PO SCH ×2 (08:03→09:00)
[2018-10-31] MEDS: CARBIDOPA/LEVODOPA 25/100MG TABLET CR PO SCH ×4 (08:08→17:00)
[2018-10-31] MEDS: OLANZAPINE 5MG TABLET PO SCH ×2 (08:08→09:00)
[2018-10-31] MEDS: ENOXAPARIN 30MG/0.3ML SYR SUBCUT SCH ×2 (08:09→09:00)
[2018-10-31] MEDS: FUROSEMIDE 40MG/4ML VIAL IVP SCH ×3 (08:09→17:15)
[2018-10-31] MEDS: FAMOTIDINE 20MG TABLET PO SCH (09:00)
[2018-10-31 10:00] VITALS: BP 132/78
[2018-10-31 12:00] VITALS: BP 140/64
[2018-10-31 14:00] VITALS: BP 126/79
[2018-10-31] MEDS: VALPROATE SODIUM 250MG/5ML UDC PO SCH (14:00)
[2018-10-31 16:00] VITALS: BP 117/56
[2018-10-31 16:19] VITALS: BP 126/79
[2018-10-31] MEDS: HALOPERIDOL LACTATE 5MG/ML VIAL IM PRN (17:23)
== END 2018-10-31 17:55 | DRG 291 ==
LOC: ER 16:09 → 6WST 18:15 → EDBEDREQ 18:27 → ENRESERV 20:51 → 3WST 23:56
PROVIDERS: ADMIT Internal Medicine; ATTEND Internal Medicine
DX: I11.0 Hypertensive heart disease with heart failure (principal); J96.00 Acute respiratory failure, unspecified whether with hypoxia or hypercapnia; G92 Toxic encephalopathy; J44.1 Chronic obstructive pulmonary disease with (acute) exacerbation; E87.1 Hypo-osmolality and hyponatremia; M62.82 Rhabdomyolysis; E87.2 Acidosis; Z68.42 Body mass index [BMI] 45.0-49.9, adult; I50.43 Acute on chronic combined systolic (congestive) and diastolic (congestive) heart failure; E83.51 Hypocalcemia; E03.9 Hypothyroidism, unspecified; E87.6 Hypokalemia; E78.5 Hyperlipidemia, unspecified; D63.8 Anemia in other chronic diseases classified elsewhere; E66.9 Obesity, unspecified; G20 Parkinson's disease; F02.80 Dementia in other diseases classified elsewhere, unspecified severity, without behavioral disturbance, psychotic disturbance, mood disturbance, and anxiety; G40.909 Epilepsy, unspecified, not intractable, without status epilepticus; Z91.09 Other allergy status, other than to drugs and biological substances; Z79.899 Other long term (current) drug therapy; Z79.82 Long term (current) use of aspirin
CPT/HCPCS: 36415; 36600; 71045; 80048; 80305; 82375; 82550; 82553; 82607; 82746; 82805; 82962; 83036; 83605; 83880; 84439; 84443; 84484; 85379; 87804; 93005; 93970; 94640; 96365; 96375; 99285; J1630; J1650; J1940; J1956; J2060; J2920; J2930; J3490; J7050; J7620; A4315

== ENCOUNTER 2018-11-10 12:22 | Inpatient (IN) | payer MEDICARE, MEDICAID ==
[~2018-11-10] VITALS: Ht 162.6 cm; Wt 97.1 kg
[2018-11-10] MEDS: DIVALPROEX SODIUM 250MG DR TABLET PO SCH ×2 (06:00→14:00)
[2018-11-10] MEDS ORDERED: OLANZAPINE 5MG TABLET ODT PO ONE (14:15)
[2018-11-10] MEDS ORDERED: OLANZAPINE 10 MG/VIAL IM ONE (14:45)
[2018-11-10 15:10] LABS: CHLORIDE 107 mEq/L (98-107)
[2018-11-10 15:14] LABS: ETHANOL BLOOD < 10 mg/dL
[2018-11-10 15:22] LABS: BASOPHILS % 0.7 % (0.0-2.0); EOSINOPHILS % 0.9 % (0.0-5.0); HEMATOCRIT. 31.1 % (36.0-48.0); HEMOGLOBIN. 10.5 g/dL (12.0-16.0); LYMPHOCYTES % 27.2 % (20.0-50.0); MEAN CORPUSCULAR HEMOGLOBIN 33.4 pg (28.0-32.0); MEAN CORPUSCULAR VOLUME 98.8 fL (81.0-99.0); MEAN PLATELET VOLUME 8.1 fl (7.4-10.4); MONOCYTES % 6.8 % (2.0-8.0); NEUTROPHILS % 64.4 % (40.0-76.0); PLATELET 231 x1000/uL (130-400); RED BLOOD CELL COUNT 3.15 mill/uL (4.2-5.4); RED CELL DISTRIBUTION WIDTH 14.7 % (11.6-14.6)
[2018-11-10 16:55] LABS: CLARITY URINE CLEAR (CLEAR); COLOR URINE YELLOW (YELLOW); KETONES URINE NEGATIVE (NEGATIVE); LEUKOCYTE ESTERASE URINE NEGATIVE (NEGATIVE); NITRITE URINE NEGATIVE (NEGATIVE); OCCULT BLOOD URINE NEGATIVE (NEGATIVE); PH URINE 6.5 (4.5-8.0); PROTEIN URINE TRACE (NEGATIVE)
[2018-11-10 17:05] LABS: *BARBITURATES SCREEN URINE NEGATIVE (NEGATIVE); *BENZODIAZEPINES SCREEN URINE NEGATIVE (NEGATIVE); *COCAINE SCREEN URINE NEGATIVE (NEGATIVE)
[2018-11-10 17:06] LABS: *AMPHETAMINES SCREEN URINE NEGATIVE (NEGATIVE); CANNABINOID URINE SCREEN NEGATIVE (NEGATIVE); METHADONE URINE SCREEN NEGATIVE (NEGATIVE); PHENCYCLIDINE URINE SCREEN NEGATIVE (NEGATIVE)
[2018-11-10 17:07] LABS: OPIATES URINE SCREEN NEGATIVE (NEGATIVE)
[2018-11-10] MEDS ORDERED: LORAZEPAM 2MG/ML CPJ IM ONE (18:00)
[2018-11-10 23:00] VITALS: BP_SYST 103; BP_SYST 106; BP_DIAS 49
[2018-11-10] MEDS ORDERED: KETOROLAC 15MG/ML VIAL IV PRN (23:15)
[2018-11-10] MEDS ORDERED: MAGNESIUM/ALUMINUM HYDROXIDE/SIMETHICONE 30ML UDC PO PRN (23:15)
[2018-11-10] MEDS ORDERED: ZOLPIDEM TARTRATE 5MG TABLET PO PRN (23:15)
[2018-11-10] MEDS ORDERED: CLONIDINE 0.1MG TABLET PO PRN (23:15)
[2018-11-10] MEDS ORDERED: IPRATROPIUM/ALBUTEROL 0.5-3(2.5)MG/3ML NEB INH PRN (23:15)
[2018-11-10] MEDS ORDERED: LEVOFLOXACIN 500MG PREMIX 100 ML IV SCH (23:15)
[2018-11-10] MEDS ORDERED: NITROGLYCERIN 0.4MG TABLET SL SL PRN (23:15)
[2018-11-10] MEDS ORDERED: ENOXAPARIN 40MG/0.4ML SYR SUBCUT SCH (23:15)
[2018-11-10] MEDS ORDERED: ACETAMINOPHEN 325MG TABLET PO PRN (23:15)
[2018-11-10] MEDS ORDERED: DOCUSATE SODIUM 100MG CAPSULE PO PRN (23:15)
[2018-11-10] MEDS ORDERED: ONDANSETRON HCL 4MG/2ML INJ IV PRN (23:15)
[2018-11-10] MEDS ORDERED: GUAIFENESIN 200MG/10ML SUGAR FREE UDC PO PRN (23:15)
[2018-11-11] MEDS ORDERED: LEVOFLOXACIN 500MG PREMIX 100 ML IV SCH (01:00)
[2018-11-11] MEDS: DEXT 5%/LACTATED RINGERS 1,000 ML IV SCH (02:06)
[2018-11-11] MEDS: DIVALPROEX SODIUM 250MG DR TABLET PO SCH ×5 (02:15→21:28)
[2018-11-11 04:00] VITALS: BP 135/86
[2018-11-11] MEDS: LEVOTHYROXINE SODIUM 150MCG TABLET PO SCH (07:10)
[2018-11-11 08:00] VITALS: BP 141/45
[2018-11-11] MEDS: ENOXAPARIN 30MG/0.3ML SYR SUBCUT SCH ×2 (08:39→20:35)
[2018-11-11] MEDS: FAMOTIDINE 20MG TABLET PO SCH (08:39)
[2018-11-11] MEDS: ASPIRIN 325MG EC TABLET PO SCH (08:39)
[2018-11-11] MEDS ORDERED: FAMOTIDINE 20MG TABLET PO SCH (09:00)
[2018-11-11 20:00] VITALS: BP 148/60
[2018-11-11] MEDS: LORAZEPAM 2MG/ML CPJ IV PRN (20:44)
[2018-11-11] MEDS ORDERED: LEVOFLOXACIN 250MG PREMIX 50 ML IV SCH (21:00)
[2018-11-12] VITALS: BP 161/50
[2018-11-12 04:00] VITALS: BP 153/49
[2018-11-12] MEDS: LEVOTHYROXINE SODIUM 150MCG TABLET PO SCH ×2 (05:52→06:36)
[2018-11-12] MEDS: DIVALPROEX SODIUM 250MG DR TABLET PO SCH ×4 (05:52→22:50)
[2018-11-12 08:00] VITALS: BP 150/53
[2018-11-12] MEDS: ASPIRIN 325MG EC TABLET PO SCH (09:19)
[2018-11-12] MEDS: FAMOTIDINE 20MG TABLET PO SCH (09:19)
[2018-11-12] MEDS: ENOXAPARIN 30MG/0.3ML SYR SUBCUT SCH ×2 (09:19→21:00)
[2018-11-12] MEDS: HALOPERIDOL LACTATE 5MG/ML VIAL IM PRN (09:34)
[2018-11-12] MEDS: LORAZEPAM 2MG/ML CPJ IV PRN (10:51)
[2018-11-12 20:00] VITALS: BP 118/50
[2018-11-12] MEDS: DEXT 5%/LACTATED RINGERS 1,000 ML IV SCH (22:51)
[2018-11-13] VITALS: BP 134/80
[2018-11-13 04:00] VITALS: BP 117/51
[2018-11-13] MEDS: DEXT 5%/LACTATED RINGERS 1,000 ML IV SCH ×2 (04:30→17:50)
[2018-11-13] MEDS: DIVALPROEX SODIUM 250MG DR TABLET PO SCH ×4 (06:00→21:12)
[2018-11-13] MEDS: LORAZEPAM 2MG/ML CPJ IV PRN ×5 (06:25→18:57)
[2018-11-13] MEDS: LEVOTHYROXINE SODIUM 150MCG TABLET PO SCH ×2 (06:27→06:47)
[2018-11-13] MEDS: ASPIRIN 325MG EC TABLET PO SCH (09:00)
[2018-11-13] MEDS: FAMOTIDINE 20MG TABLET PO SCH (10:15)
[2018-11-13] MEDS: ENOXAPARIN 30MG/0.3ML SYR SUBCUT SCH ×2 (10:16→21:12)
[2018-11-13] MEDS: HALOPERIDOL LACTATE 5MG/ML VIAL IM PRN ×2 (10:38→19:38)
[2018-11-13 15:00] VITALS: BP 134/73
[2018-11-13 16:00] VITALS: BP 100/46
[2018-11-13 20:00] VITALS: BP 110/55
[2018-11-14] VITALS: BP 107/51
[2018-11-14 04:00] VITALS: BP 130/50
[2018-11-14] MEDS: DIVALPROEX SODIUM 250MG DR TABLET PO SCH ×3 (06:00→21:41)
[2018-11-14] MEDS: LEVOTHYROXINE SODIUM 150MCG TABLET PO SCH (06:31)
[2018-11-14] MEDS: DEXT 5%/LACTATED RINGERS 1,000 ML IV SCH ×2 (06:31→20:30)
[2018-11-14 08:00] VITALS: BP 143/51
[2018-11-14] MEDS: FAMOTIDINE 20MG TABLET PO SCH (10:12)
[2018-11-14] MEDS: ASPIRIN 325MG EC TABLET PO SCH (10:12)
[2018-11-14] MEDS: ENOXAPARIN 30MG/0.3ML SYR SUBCUT SCH ×2 (10:16→21:42)
[2018-11-14 12:00] VITALS: BP 103/49
[2018-11-14 18:30] VITALS: BP 133/51
[2018-11-14 20:00] VITALS: BP 124/59
[2018-11-15] VITALS: BP 130/47
[2018-11-15] MEDS: DIVALPROEX SODIUM 250MG DR TABLET PO SCH ×3 (06:23→21:11)
[2018-11-15] MEDS: LEVOTHYROXINE SODIUM 150MCG TABLET PO SCH (06:23)
[2018-11-15 08:00] VITALS: BP 110/72
[2018-11-15] MEDS: ASPIRIN 325MG EC TABLET PO SCH (09:00)
[2018-11-15] MEDS: ENOXAPARIN 30MG/0.3ML SYR SUBCUT SCH ×2 (09:00→21:00)
[2018-11-15] MEDS: FAMOTIDINE 20MG TABLET PO SCH (09:07)
[2018-11-15] MEDS: DEXT 5%/LACTATED RINGERS 1,000 ML IV SCH ×2 (09:50→23:10)
[2018-11-15 12:00] VITALS: BP 139/51
[2018-11-15 20:00] VITALS: BP 121/51
[2018-11-16] VITALS: BP 138/60
[2018-11-16 04:00] VITALS: BP 115/59
[2018-11-16] MEDS: DIVALPROEX SODIUM 250MG DR TABLET PO SCH ×2 (06:20→15:00)
[2018-11-16] MEDS: LEVOTHYROXINE SODIUM 150MCG TABLET PO SCH (06:20)
[2018-11-16 08:00] VITALS: BP 137/72
[2018-11-16 08:36] VITALS: BP 137/72
[2018-11-16] MEDS: ENOXAPARIN 30MG/0.3ML SYR SUBCUT SCH (09:37)
[2018-11-16] MEDS: ASPIRIN 325MG EC TABLET PO SCH (09:37)
[2018-11-16] MEDS: FAMOTIDINE 20MG TABLET PO SCH (09:37)
[2018-11-16 12:00] VITALS: BP 129/69
[2018-11-16 16:18] VITALS: BP 132/68
== END 2018-11-16 17:30 | DRG 93 ==
LOC: ER 12:22 → 8WST 16:58 → EDBEDREQ 17:00 → ENRESERV 21:22
PROVIDERS: ADMIT Internal Medicine; ATTEND Internal Medicine
DX: G92 Toxic encephalopathy (principal); F99 Mental disorder, not otherwise specified; E03.9 Hypothyroidism, unspecified; J44.9 Chronic obstructive pulmonary disease, unspecified; F03.90 Unspecified dementia, unspecified severity, without behavioral disturbance, psychotic disturbance, mood disturbance, and anxiety; G20 Parkinson's disease; Z91.048 Other nonmedicinal substance allergy status; Z79.899 Other long term (current) drug therapy; Z79.82 Long term (current) use of aspirin
CPT/HCPCS: 36415; 71045; 80305; 80320; 83036; 84443; 84484; 93970; 96374; 96375; 99291; C1893; J1630; J1650; J1956; J2060; J3490; J7620; G0480